=== PATIENT | female | born 1985 | race Caucasian/White ===

== ENCOUNTER 2020-07-28 07:40 | Day surgery (SDC) | payer OTHER ==
[2020-07-28 07:51] LABS: Specific Gravity >= 1.030 (1.005-1.030)
[2020-07-28] MEDS ORDERED: SCOPOLAMINE HYDROBROMIDE PATCH TD ONE (08:12)
[2020-07-28] MEDS ORDERED: CEFAZOLIN/SWI 1gm 1 GM/10 ML SYR ONE (08:12)
[2020-07-28] MEDS ORDERED: Ringers Lactate 1,000 ML IV ONE ×4 (08:12→15:27)
[2020-07-28] MEDS ORDERED: NS 0.9% VIAL 30 ML ONE (08:46)
[2020-07-28] MEDS ORDERED: NS 0.9% VIAL 10 ML ONE ×3 (08:47→09:36)
[2020-07-28] MEDS ORDERED: CEFAZOLIN SODIUM 1 GM/VIAL ONE (08:47)
[2020-07-28] MEDS ORDERED: GENTAMICIN SULF 80 MG/2ML INJ ONE (08:47)
[2020-07-28] MEDS ORDERED: LIDOCAINE 1% W/EPI 1:100,000 MDV 50 ML VIAL ONE (08:47)
[2020-07-28] MEDS ORDERED: BACITRACIN 50000 UNIT VIAL ONE (08:47)
[2020-07-28] MEDS ORDERED: FENTANYL CITR 250 MCG/5 ML ONE ×2 (08:57→09:36)
[2020-07-28] MEDS ORDERED: VECURONIUM 10 MG/VIAL IV ONE ×2 (08:57→09:15)
[2020-07-28] MEDS ORDERED: LIDOCAINE 1% MPF 5 ML VIAL ONE ×2 (08:57→09:36)
[2020-07-28] MEDS ORDERED: propofoL 200 MG/20 ML VIAL IV ONE ×2 (08:57→09:36)
[2020-07-28] MEDS ORDERED: MIDAZOLAM HCL 2 MG/2 ML INJ ONE ×2 (08:57→09:36)
[2020-07-28] MEDS ORDERED: ONDANSETRON 4 MG/2 ML VIAL ONE ×4 (08:57→15:08)
[2020-07-28] MEDS ORDERED: dexAMETHasone 10 MG/ML VIAL ONE ×2 (08:57→09:36)
[2020-07-28] MEDS ORDERED: LANO/MINERAL OIL/PETRO 3.5 GM ONE (09:15)
[2020-07-28] MEDS ORDERED: FENTANYL CITR 100 MCG/2 ML ONE (10:18)
[2020-07-28] MEDS ORDERED: Phenylephrine HCl 10 MG/ML 1 ML VIAL ONE (12:35)
[2020-07-28] MEDS ORDERED: Mastisol Adhesive Liq ONE (13:54)
[2020-07-28] MEDS ORDERED: KETOROLAC 30 MG/ML INJ ONE (13:57)
[2020-07-28] MEDS ORDERED: MORPHINE 10 MG/ML VIAL ONE (13:58)
[2020-07-28 15:38] VITALS: TEMP 97.2
[2020-07-28] MEDS ORDERED: CODEINE 30MG/APAP 300MG TAB PO ONE (15:45)
[2020-07-28] MEDS ORDERED: CODEINE 30MG/APAP 300MG TAB ONE (15:59)
[2020-07-28 16:36] VITALS: BP 121/66; O2SAT 94
--- NOTE | 2020-07-28 20:58 | OP ---
Surgeon: Bony Terry MD Preoperative Diagnoses: Breast descent, status post augmentation and Major pattern lift. Postoperative Diagnoses: Breast descent, status post augmentation and Major pattern lift. Procedure Performed: Explantation and lift. Anesthesia: General. Description Of Procedure: After satisfactory induction of general anesthesia, a 42 mm template was u sed to outline the right and left areolas and transverse curvilinear incision was made and the skin w as de-epithelialized with dermabrader and EpiCut. The flap was elevated and dissected first. The fl ap was of 1.1 cm thickness, elevated towards the sternum, clavicle, anterior axillary line. This was done and inferior incision was made. The intervening skin was de-epithelialized. Retropectoral dis section was performed to remove the implant, silicone gel, 422 g. The patient then had straps elevat ed from the cone after the cone was formed with 2-0 PDS sutures. Straps were elevated at 12 o'clock, 1:30 and 3 o'clock positions of the right breast. The straps were then woven in and out of the pect oralis muscle back to base of cone, tied themselves with 2-0 PDS suture. This was done for 12 o'cloc k, 1:30 straps. The 3 o'clock strap was sewn over the sternum at 3 o'clock position with 2-0 Ethibon d. The wound was temporary stapled shut. Identical procedure done on the opposite side. We then re turned to the right side, marked out the dog ears in the lateral, excised tissue, irrigated the wound with antibiotic solution. A 10 EBEN was brought out the axilla, sewn in place with 2-0 silk, and the wound closed with 3-0 Vicryl laterally and then 3-0 PDS running subcuticular tied from lateral to the medial and medial to lateral tied in vertical meridian of the breast. Left side was done in identic al manner. The patient was sat up. Site for new nipple-areolar complex was marked out. Tissue core d out with a 42 template and the nipple-areolar complex delivered and sewn with interrupted 4-0 PDS f ollowed with 4-0 PDS running subcuticular. Dressings consisted of tincture of benzoin, Steri-Strips, followed by Esmarch, fluffs, and Yobani wrap. The patient tolerated the procedure well and returned to recovery room. The amount removed from the right breast was 70 g, left breast 72 g. KAELYN/JEFFREY Voice ID: [id number] Report ID: [id number]
== END 2020-07-28 16:35 | disposition home or self-care (01) ==
LOC: OR 07:40
PROVIDERS: ATTEND Specialist
PROC: 0HPT0JZ Removal of Synthetic Substitute from Right Breast, Open Approach (ICD-10-PCS; 2020-07-28)
PROC: 0H0V0ZZ Alteration of Bilateral Breast, Open Approach (ICD-10-PCS; 2020-07-28)
PROC: 0HPU0JZ Removal of Synthetic Substitute from Left Breast, Open Approach (ICD-10-PCS; principal; 2020-07-28 09:00)
DX: N64.81 Ptosis of breast (principal)
CPT/HCPCS: 81025; 88305; 19328; 19380; J2704 ×2; J2370; J1580; J2250; J3010 ×3; J1100 ×2; J0690 ×2; J7120 ×4; J2405 ×4